=== PATIENT | female | born 1975 | race Caucasian/White ===

== ENCOUNTER 2022-09-06 18:40 | Emergency (ER) | payer BC | END 2022-09-06 19:47 | disposition left against medical advice (07) | LOC: JD.ED 18:40 | DX: Z53.21 Procedure and treatment not carried out due to patient leaving prior to being seen by health care provider (principal) ==

== ENCOUNTER 2023-09-13 18:19 | Emergency (ER) | payer BC ==
[2023-09-13 19:12] VITALS: BP 138/72; PULSE 70
== END 2023-09-13 19:14 | disposition home or self-care (01) ==
LOC: JD.ED 18:19
DX: S61.205A Unspecified open wound of left ring finger without damage to nail, initial encounter (principal); J45.909 Unspecified asthma, uncomplicated; E11.9 Type 2 diabetes mellitus without complications; Z88.2 Allergy status to sulfonamides; W26.0XXA Contact with knife, initial encounter
CPT/HCPCS: 99282